=== PATIENT | female | born 1985 | race Caucasian/White ===

== ENCOUNTER → 2017-04-24 | Outpatient (CLI) | payer OTHER | END | disposition home or self-care (01) | LOC: GMA 14:25 | PROVIDERS: ATTEND Physician Assistant | DX: R30.0 Dysuria (principal) ==

== ENCOUNTER → 2017-07-17 | Outpatient (CLI) | payer OTHER ==
--- NOTE | 2017-07-21 09:17 | MAM ---
EXAM DESCRIPTION: 3D Screening BILATERAL : Digital Mammography. CLINICAL HISTORY: 32 years Female SCREENING . Mother with breast cancer. No complaints. No family history of breast cancer. No HRT. COMPARISON: Baseline study at this facility. No prior reports available. TECHNIQUE: Bilateral CC and MLO projection full-field images, 3-D tomosynthesis digital mammographic technique. Also bilateral synthesized CC/ MLO full-field images. CAD not utilized. FINDINGS: The breast parenchymal density pattern is: Extremely dense breast tissue, which lowers the sensitivity of mammography. No skin thickening or nipple retraction region of irregular fibroglandular tissues and focal asymmetry at the 600 clock position of the posterior third of the left breast near the chest wall. Focal asymmetry lower inner quadrant of the anterior third of the right breast approximately 5 cm from the nipple. No focal, stellate mass or density, focal asymmetry , and no suspicious microcalcifications right breast. IMPRESSION: BI-RADS CATEGORY: 0 - INCOMPLETE- Need additional imaging evaluation. FOLLOW-UP: Recall for additional imagin-D tomosynthesis full field LM images bilateral breast. Targeted bilateral breast ultrasound. Written communication concerning the IMPRESSION and Follow-up, will be mailed to the patient and referring health care provider. Electronically signed by: Michele Gilliam MD 07/21/2017 9:16 AM [employer] [facility]
== END ==
LOC: MAMMO 14:15
PROVIDERS: ATTEND Family Medicine
DX: Z12.31 Encounter for screening mammogram for malignant neoplasm of breast (principal)

== ENCOUNTER → 2017-07-29 | Outpatient (CLI) | payer OTHER ==
--- NOTE | 2017-07-29 20:34 | MAM ---
EXAM DESCRIPTION: 3D Diagnostic, Bilateral: Digital Mammography CLINICAL HISTORY: 32 yearsFemaleABN MAMMO . Asymmetric tissue left inferior posterior breast. Mother with breast cancer. COMPARISON: 3-D tomosynthesis bilateral screening examination 07/17/2017. Targeted left breast ultrasound following this examination. Report from prior examination also reviewed. TECHNIQUE: Bilateral LM projection full-field images, 3-D tomosynthesis digital mammographic technique. Also bilateral synthesized LM full-field images. CAD not utilized. FINDINGS: The breast parenchymal density pattern is: Heterogeneously dense breast tissue, which may obscure small masses. No skin thickening or nipple retraction again noted is the asymmetric tissue at the 600 clock position of the posterior third of the inferior left breast near the chest wall. Diffuse microcalcifications associated with a dense tissues bilaterally. ULTRASOUND: Scanning posterior inferior left breast near the chest wall in the 600 clock sector. Heterogeneous fatty echoes with scattered fibroglandular tissue. Tiny cysts within the fibrous tissue. No discrete solid mass. No large calcifications or skin changes. No abnormal vascularity. IMPRESSION: BI-RADS CATEGORY: 2 - BENIGN FINDINGS. FOLLOW UP: With immediate family history of breast cancer, patient should consider beginning routine digital bilateral screening at age 33, one year interval from July 2017. The FINDINGS and the FOLLOW-UP plan were reviewed in person with the patient after the examination. Written communication explaining the IMPRESSION and FOLLOW-UP will be mailed to the patient and referring care provider. Any breast change noted on a breast self-exam should be reported promptly to the patient's healthcare provider. Breast MRI is recommended for women with an approximately 20-25% or greater lifetime risk of breast cancer, including women with a strong family history of breast or ovarian cancer and women who have been treated for Hodgkin's disease. A negative mammographic report should not delay tissue diagnosis in patients with significant clinical history or physical findings. Extremely dense breast tissue limits the sensitivity of digital mammography. Electronically signed by: Michele Gilliam MD 07/29/2017 8:33 PM LEGAL RECORDS CLERK
--- NOTE | 2017-07-29 20:35 | US ---
EXAM DESCRIPTION: Breast,Left: Ultrasound CLINICAL HISTORY: 32 yearsFemaleABNORMAL MAMMO. Focal asymmetry posterior inferior left breast. COMPARISON: Digital 3-D tomosynthesis diagnostic mammogram left breast today. TECHNIQUE: Transcutaneous scanning of the left breast utilizing two-dimensional and Doppler modes. Scanning performed by the supervisory geographer and Dr. Gilliam. FINDINGS: Scanning posterior inferior left breast near the chest wall in the 600 clock sector. Heterogeneous fatty echoes with scattered fibroglandular tissue. Tiny cysts within the fibrous tissue. No discrete solid mass. No large calcifications or skin changes. No abnormal vascularity. IMPRESSION: 1. Bi-Rads Category 2: Benign. 2. Please refer to left breast 3-D tomosynthesis diagnostic mammographic examination and report on this visit. The FINDINGS and the FOLLOW-UP plan were reviewed in person with the patient after the examination. Written communication explaining the IMPRESSION and FOLLOW-UP will be mailed to the patient and referring care provider. Electronically signed by: Michele Gilliam MD 07/29/2017 8:34 PM [facility]
== END ==
LOC: MAMMO 12:56
PROVIDERS: ATTEND Family Medicine
DX: R92.8 Other abnormal and inconclusive findings on diagnostic imaging of breast (principal)
CPT/HCPCS: 76641; 77066; G0279

== ENCOUNTER → 2018-04-09 | Outpatient (CLI) | payer OTHER | LOC: GMAM 14:18 | PROVIDERS: ATTEND Family Medicine | DX: R00.0 Tachycardia, unspecified (principal) ==

== ENCOUNTER → 2018-11-19 | Outpatient (CLI) | payer OTHER ==
--- NOTE | 2018-11-30 12:35 | MAM ---
EXAM DESCRIPTION: 3D Screening BILATERAL : Digital Mammography. CLINICAL HISTORY: 33 years Female ANNUAL SCREENING . No complaints or personal history of breast cancer. Mother with breast cancer. Childbirth. Premenopausal. No HRT. Lifetime risk of developing breast cancer (Tyrer-Cuzick model)(%): 17.2. COMPARISON: Bilateral screening digital breast tomosynthesis 07/17/2017. Diagnostic left breast digital tomosynthesis and targeted ultrasound 07/29/2017. TECHNIQUE: Bilateral CC and MLO projection full-field images, digital tomosynthesis mammographic technique. Bilateral digital 2-D full-field MLO images. CAD not available for tomosynthesis or 2-D images. FINDINGS: The breast parenchymal density pattern is: Heterogeneously dense breast tissue, which may obscure small masses. No skin thickening or nipple retraction. Small bilateral microcalcifications. No new focal, stellate mass or density, focal asymmetry , and no suspicious microcalcifications bilaterally. Stable mammograms compared to prior study. IMPRESSION: Benign exam. BIRAD CATEGORY: 2 BENIGN FINDINGS. RECOMMENDATIONS: FOLLOW UP: Routine digital bilateral mammographic screening, one year interval from November 2018. Written communication explaining the IMPRESSION and follow-up, will be mailed to the patient and referring health care provider. According to the [employer], yearly mammograms are recommended starting at age 40 and continuing as long as a woman is in good health. Any breast change noted on a breast self-exam should be reported promptly to the patient's healthcare provider. Breast MRI is recommended for women with an approximately 20-25% or greater lifetime risk of breast cancer, including women with a strong family history of breast or ovarian cancer and women who have been treated for Hodgkin's disease. A negative mammographic report should not delay tissue diagnosis in patients with significant clinical history or physical findings. Extremely dense breast tissue limits the sensitivity of digital mammography. Electronically signed by: Michele Gilliam MD 11/30/2018 12:33 PM CDT
== END ==
LOC: MAMMO 08:40
PROVIDERS: ATTEND Family Medicine
DX: Z12.31 Encounter for screening mammogram for malignant neoplasm of breast (principal)

== ENCOUNTER → 2019-01-15 | Outpatient (CLI) | payer OTHER ==
--- NOTE | 2019-01-15 10:34 | MRI ---
EXAM DESCRIPTION: Lumbar Spine w/o Contrast : Magnetic Resonance Imaging. CLINICAL HISTORY: RETENTION OF URINE COMPARISON: None. TECHNIQUE: Multiplanar, multiple standard sequences, non contrast MRI, lumbar spine. FINDINGS: L5-S1: The disc space is well visualized on axial T2 series 501, image 3. Mild disc desiccation and minimal disc space loss. Posterior mild bulging of the disc in the midline and left of midline abutting the left ventral thecal sac. Bilateral flavum ligament hypertrophy Mild canal narrowing. Mild to moderate left foraminal narrowing and mild right foraminal narrowing. L4-L5: Minimal disc desiccation with disc space maintained. Minimal disc bulge into the foramen with hyperintense T2 weighted annular fissure. Mild to moderate left foraminal narrowing. Bilateral mild facet hypertrophic arthrosis and ligament thickening. Mild canal narrowing L3-L4: Disc, disc space, canal and foramina, and facets are unremarkable. No compromise of the nerve roots. L2-L3: Disc, disc space, canal and foramina, and facets are unremarkable. No compromise of the nerve roots. L1-L2: Disc, disc space, canal and foramina, and facets are unremarkable. No compromise of the nerve roots. Conus terminates at this level. T12-L1: Disc, disc space, canal and foramina and facets unremarkable. No compromise of the nerve roots. Anatomic alignment and curvature. Paravertebral soft tissues negative.. Cord normal signal and caliber. Normal marrow signal in the remaining vertebral bodies and the posterior elements. Vertebral bodies are not compressed at any level. IMPRESSION: 1. L5-S1 disc desiccation and minimal disc space loss. Bulge to the left of midline. Mild to moderate left foraminal narrowing. Hypertrophy of the posterior elements. 2. L4-L5 disc desiccation with annular fissure in the posterior lateral margin bulging into the left foramen. Canal and foramina are not stenotic. Hypertrophy of the posterior elements. Electronically signed by: Michele Gilliam MD 01/15/2019 10:32 AM CDT
== END ==
LOC: MRI 07:13
PROVIDERS: ATTEND Obstetrics & Gynecology
DX: R33.9 Retention of urine, unspecified (principal); M51.37 Other intervertebral disc degeneration, lumbosacral region

== ENCOUNTER 2019-06-04 21:52 | Emergency (ER) | payer OTHER ==
[2019-06-04] MEDS ORDERED: MAGNESIUM SULFATE PREMIX 2GM 2 GM in PREMIX BAG 1 BAG IVPB ONE (22:11)
[2019-06-04] MEDS ORDERED: PROCHLORPERAZINE INJ 10 MG/2 ML VIAL IV ONE (22:11)
[2019-06-04] MEDS ORDERED: KETOROLAC TROMETHAMINE INJ 30 MG/ML VIAL IV ONE (22:11)
[2019-06-04] MEDS ORDERED: diphenhydrAMINE HCL 50 MG/ML VIAL IV ONE (22:11)
[2019-06-04 22:12] VITALS: TEMP 98.1
--- NOTE | 2019-06-04 22:12 | ED.PDOC ---
History of Present Illness - General Chief Complaint: Headache Stated Complaint: Migraine w/nausea Time Seen by Provider: 06/04/19 21:52 Additional Information: Patient presents for evaluation of headache that has been worsening over the past two to three days. She states that her daughter recently had the flu and patient was given Xofluza incase she started to develop symptoms. Patient states that she started to have headaches after Zofluza. Denies any vision changes, fevers, chills, weakness, or numbness. Headache has been gradual in nature. She denies previous hx of migraines. Has not taken motrin or tylenol for headache. She denies any neck pain or stiffness. - History of Present Illness Recent Head Trauma: no recent headache/trauma Allergies/Adverse Reactions: Allergies Fluconazole [From Diflucan] Adverse Reaction (Verified 06/04/19 22:17) Review of Systems - Review of Systems Constitutional: Denies: chills, fever Respiratory: Denies: cough, short of breath Cardiology: Denies: chest pain Gastrointestinal/Abdominal: States: nausea. Denies: abdominal pain, vomiting Genitourinary: Denies: dysuria Musculoskeletal: States: muscle pain Neurological: States: headache Past Medical History (General) - Patient Medical History Hx Seizures: No Hx Stroke: No Hx Dementia: No Hx Asthma: No Hx of COPD: No Hx Cardiac Disorders: No Hx Congestive Heart Failure: No Hx Pacemaker: No Hx Hypertension: No Hx Thyroid Disease: No Hx Diabetes: No Hx Gastroesophageal Reflux: No Hx Renal Disease: No Hx Cancer: No Hx of HIV: No Hx MRSA: No Surgical History: cholecystectomy - Vaccination History Hx Tetanus, Diphtheria Vaccination: Yes Hx Influenza Vaccination: Yes Hx Pneumococcal Vaccination: No Immunizations Up to Date: Yes - Social History Hx Tobacco Use: No Hx Alcohol Use: No - Female History Patient is a Female of Child Bearing Age (10 -59 yrs old): Yes Patient : No - Triage Comment ED Triage Comment: Pt has IUD Family Medical History - Family History Mother Family History: Unknown Physical Exam - Physical Exam General Appearance: Alert, No apparent distress, Well Developed, Well Groomed, Well Hydrated, Well Nourished Eyes, Ears, Nose, Throat Exam: PERRL/EOMI Neck: non-tender, full range of motion, supple Cardiovascular/Chest: normal peripheral pulses, regular rate, rhythm, no edema, no gallop Respiratory: lungs clear, normal breath sounds, no respiratory distress, no accessory muscle use Gastrointestinal/Abdominal: non tender, soft, no organomegaly 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 Headache has been gradually worsening and was not maximal in intensity upon onset. She has no fevers or f ocal neurologic deficits. No recent head trauma. ESCALONA inconsistent with SAH or meningitis. Headache appears to be linked with her flu-like symptoms. She has not been taking anti-inflammatory medications. Denies any chance that she can be and states that she is currently on her menstrual cycle. Patient was offered imaging with CT Head to rule out intracranial hemorrhage, however she declined. Patient requested symptomatic management. Following migraine cocktail, patient was feeling drastically better and wanted to return home. Patient was discharged home into her 's care. 06/04/19 22:43 Patient feeling better. Headache drastically improved. Will plan for discharge home. Departure - Departure Clinical Impression: Headache Qualifiers: Headache type: unspecified Headache chronicity pattern: acute headache Intractability: not intractable Qualified Code(s): R51 - Headache Time of Disposition: 22:44 Disposition: Discharge to Home or Self Care Condition: Good Departure Forms: ED Discharge - Pt. Copy, Patient Portal Self Enrollment Instructions: DI for Headache Referrals: Grayson Miller MD [Primary Care Provider] - 1-2 Weeks Comments: [id number]
[2019-06-04] MEDS ORDERED: MAGNESIUM SULFATE PREMIX 2GM 50 ML IVPB ONE (22:19)
[2019-06-04 23:08] VITALS: BP 109/76; O2SAT 96
== END 2019-06-04 23:07 | disposition home or self-care (01) ==
LOC: ER 21:52
DX: R51 Headache (principal); R11.0 Nausea
CPT/HCPCS: J0780; J1200; J1885; J3475

== ENCOUNTER → 2019-11-26 | Outpatient (CLI) | payer OTHER ==
--- NOTE | 2019-11-27 09:32 | RAD ---
3 radiographs right first digit Indication: PAIN IN RIGHT THUMB Comparison: None. Impression: No acute fracture, malalignment, advanced joint space narrowing, osseous erosions, or periarticular osteopenia identified. Soft tissues are intact without radiopaque foreign body. Electronically signed by: Josh Lyn MD 11/27/2019 9:31 AM CDT
== END ==
LOC: RAD 10:28
PROVIDERS: ATTEND Orthopaedic Surgery
DX: M79.644 Pain in right finger(s) (principal)

== ENCOUNTER → 2019-12-16 | Outpatient (CLI) | payer OTHER ==
--- NOTE | 2019-12-16 15:11 | MRI ---
Study: MRI of the Right Thumb. Indication: SPRAIN ULNAR COLLATERAL LIGAMENT RIGHT HAND THUMB Technique: Multiplanar, multi sequence MRI of the right thumb was obtained without intravenous contrast. Comparison: Radiographs November 26, 2019. Findings: High grade partial, effectively full-thickness tearing distal margin of the ulnar collateral ligament the first MCP joint with extensive avulsive/contusive marrow edema of the ulnar margin of the base of the first metacarpal. A portion of the ligament is retracted proximally as best noted on coronal T2 fat sat image 9 and does appear to lie superficial to the adductor aponeurosis concerning for a Stener lesion. Radial collateral ligament intact. No acute fracture. Tiny first MCP joint effusion. Edema and inflammation present about the first MCP joint. No rupture of the first flexor or extensor tendons. Impression: High-grade partial, effectively full-thickness tearing of the distal aspect of the ulnar collateral ligament of the first MCP joint with proximal retraction of ligament fibers concerning for Stener lesion. Associated avulsive marrow edema of the ulnar margin of the base of first metacarpal noted. No acute fracture. Electronically signed by: Josh Lyn MD 12/16/2019 3:10 PM CDT
== END ==
LOC: MRI 10:36
PROVIDERS: ATTEND Orthopaedic Surgery
DX: S53.441A Ulnar collateral ligament sprain of right elbow, initial encounter (principal); M24.241 Disorder of ligament, right hand; R60.0 Localized edema

== ENCOUNTER → 2020-01-14 | Outpatient (CLI) | payer OTHER | LOC: GMAM 11:56 | PROVIDERS: ATTEND Family Medicine | DX: R39.15 Urgency of urination (principal) ==

== ENCOUNTER → 2020-02-01 | Outpatient (CLI) | payer OTHER | END | disposition home or self-care (01) | LOC: GMAM 10:48 | PROVIDERS: ATTEND Family Medicine | DX: R30.0 Dysuria (principal) ==

== ENCOUNTER → 2020-05-08 | Outpatient (CLI) | payer OTHER | LOC: GMAM 15:32 | PROVIDERS: ATTEND Family Medicine | DX: R30.0 Dysuria (principal) ==